=== PATIENT | male | born 1975 | race Caucasian/White ===

== ENCOUNTER 2018-11-24 10:45 | Emergency (ER) | payer OTHER ==
--- NOTE | 2018-11-24 12:40 | ED Physician Documentation ---
PD HPI BACK INJURY - Stated complaint Stated Complaint: BACK PX - History obtained from History obtained from: Patient - History of Present Illness Location: Right, Lower Type of injury: No: Fall, Twist Where injury occurred: Home, Work (he had noted some pain in lower back yesterday. 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 Awoke this morning with marked stiffness and pain on ROM of right lower back. No numbness nor weakness. No bladder problem.) Timing - onset: Yesterday Timing - details: Gradual onset, Still present (worse this morning) Quality: Pain, Spasm Worsened by: Moving, Palpating Associated symptoms: No: Fever, Weakness, Numbness, Incontinent of urine, Hematuria Contributing factors: Work related Similar symptoms before: Has not had sx before Recently seen: Not recently seen Review of Systems Constitutional: denies: Fever, Chills, Myalgias Nose: denies: Rhinorrhea / runny nose, Congestion Throat: denies: Sore throat Respiratory: denies: Cough GI: denies: Abdominal Pain, Nausea, Vomiting, Constipation, Diarrhea : denies: Dysuria, Frequency, Hematuria Skin: denies: Rash, Lesions Musculoskeletal: reports: Back pain (just current episode). 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 - Past Surgical History Past Surgical History: No - Present Medications Home Medications: Ambulatory Orders Medication Instructions Recorded Confirmed Hydrocodone/Acetaminophen [Falcon 1 each PO Q6H PRN #20 tablet 11/24/18 5-325 Tablet] Naproxen 500 mg PO BID #20 tablet 11/24/18 Secukinumab [Cosentyx Pen] 150 mg SQ 11/24/18 Tizanidine HCl 4 mg PO TID PRN #25 capsule 11/24/18 dexAMETHasone [Decadron] 4 mg PO DAILY #5 tablet 11/24/18 - Allergies Allergies/Adverse Reactions: Allergies Allergy/AdvReac Type Severity Reaction Status Date / Time No Known Drug Allergies Allergy Verified 11/24/18 10:53 - Social History Does the pt smoke?: No Smoking Status: Never smoker Does the pt drink ETOH?: Yes Does the pt have substance abuse?: No - Immunizations Immunizations are current?: Yes PD ED PE NORMAL - Vitals Vital signs reviewed: Yes - General General: Alert and oriented X 3, No acute distress, Well developed/nourished - Cardiac Cardiac: RRR, No murmur - Respiratory Respiratory: Clear bilaterally - Abdomen Abdomen: Soft, Non tender - Back Back: No CVA TTP, No spinal TTP, Other (tender right lateral muscles without rash nor sores. focally tender in muscle and top of SI area. no midline tenderness. ) - Derm Derm: Normal color, Warm and dry Results - Vitals Vitals: Vital Signs - 24 hr 11/24/18 11/24/18 10:52 13:59 Temperature 36.2 C L 36.0 C L Heart Rate 91 64 Respiratory 18 18 Rate Blood Pressure 124/90 H 114/76 O2 Saturation 95 95 Oxygen O2 Source Room air PD MEDICAL DECISION MAKING - ED course Complexity details: re-evaluated patient (improved to reasonable ROM with meds here. ), considered differential (not having pain midline, but in SI area and lateral right muscles. Doubt psoriatic extension of his prior med problem. Seems common low back muscular pain. ), d/w patient ED course: triger point in lateral muscle right side with marcaine and kenalog without problems. Departure - Departure Disposition: 01 Home, Self Care Clinical Impression: Acute lumbar myofascial strain Qualifiers: Encounter type: initial encounter Qualified Code(s): S39.012A - Strain of muscle, fascia and tendon of lower back, initial encounter Condition: Stable Record reviewed to determine appropriate education?: Yes Instructions: ED Sprain Strain Lumbar Follow-Up: Chua Messer MD [Primary Care Provider] - Prescriptions: dexAMETHasone [Decadron] 4 mg PO DAILY #5 tablet Hydrocodone/Acetaminophen [Falcon 5-325 Tablet] 1 each PO Q6H PRN #20 tablet PRN Reason: Pain Naproxen 500 mg PO BID #20 tablet Tizanidine HCl 4 mg PO TID PRN #25 capsule PRN Reason: Spasms Comments: Heat and gentle stretching for the low back muscles. Avoid bending lifting and twisting for the next several days. Rest at home today and may be tomorrow. Add some anti-inflammatories such as naproxen twice daily with food and Decadron steroid anti-inflammatory daily for 5 days. To that add tizanidine muscle relaxant for spasms and stiffness and hydrocodone as needed for pain. Recheck if not improving well over the next several days. Physical treatments such as massage and chiropractic are okay as well. Forms: Activity restrictions Discharge Date/Time: 11/24/18 14:06
[2018-11-24] MEDS ORDERED: HYDROmorphone 1 MG/ML CARPUJECT IM STA (13:10)
[2018-11-24] MEDS ORDERED: KETOROLAC 60 MG/2 ML VIAL IM STA (13:10)
[2018-11-24] MEDS ORDERED: TRIAMCINOLONE 40 MG/ML VIAL IM STA (13:11)
[2018-11-24] MEDS ORDERED: diazePAM 5 MG TABLET PO STA (13:11)
[2018-11-24 13:59] VITALS: BP 114/76
== END 2018-11-24 14:06 | disposition home or self-care (01) ==
LOC: ED 10:45
DX: S39.012A Strain of muscle, fascia and tendon of lower back, initial encounter (principal); X58.XXXA Exposure to other specified factors, initial encounter
CPT/HCPCS: 20552; 96372; 99284; A9270; J1170

== ENCOUNTER 2019-01-14 12:55 | Outpatient (CLI) | payer OTHER ==
--- NOTE | 2019-01-14 15:53 | MRI Report ---
Reason: RT ANKLE PAIN Procedure Date: 01/14/2019 Accession Number: [id number] / [id number] Procedure: MRI - Ankle RT W/O CPT Code: Final Report FULL RESULT: EXAM: RIGHT ANKLE/HINDFOOT MRI WITHOUT CONTRAST EXAM DATE: 01/14/2019 01:43 PM. CLINICAL HISTORY: Right ankle pain. COMPARISON: None. TECHNIQUE: Multiplanar, multisequence T1-weighted and fluid-sensitive sequences of the ankle/hindfoot without contrast. Other: None. FINDINGS: Bones and articular surfaces: Moderate ankle joint effusion. 1 cm subchondral cyst formation at the posterior articular facet of the talus at the posterior subtalar joint. There may be a tiny overlying cartilage fissure. No significant associated cartilage defect. Small os trigonum. No significant edema at the synchondrosis. Musculotendinous structures: The Achilles tendon and plantar fascia appear intact. Visualized anterior, posterior and posterolateral ankle tendons appear intact. Moderate fluid associated with the flexor hallucis longus tendon. No muscle edema, atrophy or fatty replacement within the field of view. Ligaments: There is mild thickening and edema associated with the posterior talofibular ligament. The anterior talofibular, calcaneofibular and deltoid ligaments appear intact. Normal signal within the tarsal sinus. IMPRESSION: 1. Moderate ankle joint effusion. 2. Focal subchondral cyst within the talus at the posterior subtalar joint. Possible associated cartilage fissure but no significant cartilage defect. 3. Mild flexor hallucis longus tenosynovitis. 4. Possible mild sprain or scarring at the posterior talofibular ligament. RADIA
== END 2019-01-14 12:56 | disposition home or self-care (01) ==
LOC: DI 12:55
PROVIDERS: ATTEND Orthopaedic Surgery
DX: M25.571 Pain in right ankle and joints of right foot (principal); M25.471 Effusion, right ankle; M65.871 Other synovitis and tenosynovitis, right ankle and foot; M85.671 Other cyst of bone, right ankle and foot

== ENCOUNTER 2019-04-02 09:52 | Day surgery (SDC) | payer OTHER ==
[2019-04-02] MEDS ORDERED: ROCURONIUM 50 MG/5 ML VIAL IVP ONE (09:53)
[2019-04-02] MEDS ORDERED: DEXAMETHASONE 4 MG/ML VIAL IVP ONE (09:53)
[2019-04-02] MEDS ORDERED: PROPOFOL 200 MG/20 ML VIAL IVP ONE (09:53)
[2019-04-02] MEDS ORDERED: KETOROLAC 30 MG/ML VIAL IVP ONE (09:53)
[2019-04-02] MEDS ORDERED: GLYCOPYRROLATE 1 MG/5 ML VIAL IVP ONE (09:53)
[2019-04-02] MEDS ORDERED: MIDAZOLAM 2 MG/2 ML VIAL IVP ONE (09:53)
[2019-04-02] MEDS ORDERED: NEOSTIGMINE 1 MG/1 ML 10 ML MDV IVP ONE (09:53)
[2019-04-02] MEDS ORDERED: LACTATED RINGERS 1,000 ML IV ONE ×3 (09:57→13:47)
--- NOTE | 2019-04-02 10:45 | ANESTHESIA ---
Pre-Anesthesia VS, & Labs - Diagnosis Right symptomatic trigonum, FHL tendinitis - Procedure Open OS trigonum excision, FHL tendon exploration Vital Signs: Temp Pulse Resp BP Pulse Ox 36.2 C L 85 12 130/97 H 96 04/02/19 09:57 04/02/19 09:57 04/02/19 09:57 04/02/19 09:57 04/02/19 09:57 Height 6 ft 4 in Weight (kg) 127.01 kg Body Mass Index 33.5 - NPO >8 hours - Lab Results Lab results reviewed: No Home Medications and Allergies Secukinumab [Cosentyx Pen] 150 mg SQ 11/24/18 Allergies/Adverse Reactions: Allergies Allergy/AdvReac Type Severity Reaction Status Date / Time No Known Drug Allergies Allergy Verified 03/26/19 08:13 Anes History & Medical History - Anesthetic History Anesthesia Complications: reports: No previous complications Family history of Anesthesia Complications: Denies Family history of Malignant Hyperthermia: Denies - Medical History Cardiovascular: reports: None Pulmonary: reports: None, Other (Snores) Gastrointestinal: reports: None Urinary: reports: None Neuro: reports: None Musculoskeletal: reports: Osteoarthritis, Other Endocrine/Autoimmune: reports: None Blood Disorders: reports: None Skin: reports: None Smoking Status: Never smoker Psychosocial: reports: No issues indicated Exam General: Alert, Oriented x3 Dental: WNL Mouth Opening: Greater than 4 Fingerbreadths Neck Mobility: Normal Mallampati classification: II Thyromental Distance: greater than 6 cm Respiratory: Lungs clear Cardiovascular: Regular rate Neurological: Normal speech Mental/Cognitive Status: Alert/Oriented X3 Cognitive Status: Within normal limits Plan Anesthesia Type: General Consent for Procedure(s) Verified and Reviewed: Yes Code Status: Attempt Resuscitation ASA classification: 2-Mild systemic disease Is this case an emergency?: No
[2019-04-02] MEDS ORDERED: ROPIVACAINE 0.5% PF 20 ML AMPULE ONE ×2 (12:22→12:31)
[2019-04-02] MEDS ORDERED: BUPIVACAINE 0.25% PF 30 ML VIAL ONE (12:49)
[2019-04-02] MEDS ORDERED: ceFAZolin 3 GM in SODIUM CHLORIDE 0.9% 100ML 100 ML IV ONE (13:00)
[2019-04-02] MEDS ORDERED: BUPIVACAINE 0.25% PF 30 ML VIAL SUBQ ONE (13:57)
[2019-04-02] MEDS ORDERED: ACETAMINOPHEN 1,000 MG/100 ML 100 ML IV ONE (14:02)
[2019-04-02] MEDS ORDERED: ONDANSETRON 4 MG/2 ML VIAL IVP PRN (15:45)
[2019-04-02] MEDS ORDERED: oxyCODONE 5 MG TABLET PO PRN (15:45)
--- NOTE | 2019-04-02 15:45 | OPERATIVE REPORT ---
Operative Report - General Procedure Date: 04/02/19 - Other Other Information/Narrative: Date of Procedure: 02 April 2019 Planned Procedure: Right ankle os trigonum excision, FHL tendon exploration Pre-op diagnosis: Right ankle symptomatic os trigonum, FHL tendinitis Procedure performed: Right ankle os trigonum excision, FHL tendon explore Post-op diagnosis: Right ankle symptomatic os trigonum Primary Surgeon: SCHUYLER ALVES Secondary Surgeon: RODNEY DUGGAN Anesthesia: General endotracheal, preoperative adductor canal and popliteal nerve block EBL: 5 ml Tourniquet: 85 minutes, right thigh. Indications: The patient is a 43-year-old male who sustained an injury to his right ankle in 2016. He was treated nonoperatively in a cam boot with physical therapy and injections which provided minimal durable relief. His past medical history significant for psoriatic arthritis treated with Cosentyx. 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 Therefore he requested a referral and orthopedic evaluation. He presented to the orthopedic clinic, with continued pain 3-4 out of 10 on a daily basis. On exam he localized the pain to the posterior lateral portion of the ankle anterior to the Achilles tendon, consistent with a symptomatic os trigonum. He had pain with forced plantarflexion of the ankle and he also had pain at that location with stretch of the FHL tendon suggesting impingement of the tendon across the os. MRI demonstrated a large os trigonum, with fluid in the FHL tendon sheath, without discrete tear. Treatment options were discussed including continued nonoperative treatment, injections, or surgery to remove the os trigonum. Risks of surgery were discussed to include pain, bleeding, infection, damage to nearby structures including nerves, blood vessels and tendons, lack of symptom relief, need for further surgery, DVT, PE, stroke, and . After discussion in clinic regarding the risk benefits and limitations of surgery, as well as the persistence of pain following surgery, the patient elected to proceed. As his pain was primarily posterior lateral with FHL tendon movement, a limited exploration of the tendon at that location was discussed. The planned procedure was right ankle os trigonum excision, and limited FHL tendon exploration. Informed consent was signed. We discussed timing of his Cosentyx, which he typically takes once a month at the beginning of the month, and agreed to hold his February dose until the seventh, after the incision was examined. Review of the literature suggests that Cosentyx did not need to be discontinued prior to a surgery of this type. Procedure in Detail: The patient was met in the pre-operative hold area on the day of the procedure. The operative extremity was signed and questions were answered. The patient met with anesthesia and received an adductor canal and popliteal block and was brought to the operating room and a general anesthetic was administered. The patient was then positioned prone on bolsters, ensuring free excursion of the abdomen, with all bony prominences padded. A nonsterile tourniquet was placed high on the right thigh. Standard prepping and draping was performed. A time out confirmed patient identification, laterality, procedure, allergies, and antibiotics. The course of the Achilles tendon was marked out on the posterior leg and 7 cm was measured proximal from the tip of the fibula to illustrate the point at which the sural nerve likely crossed over the lateral border of the tendon. An initial 8 cm longitudinal incision was marked out on the skin midway between the lateral border of the Achilles tendon and the posterior border of the fibula. The extremity was exsanguinated using an Esmarch bandage and the tourniquet was inflated. The skin was sharply incised using a 10 blade, followed by gentle spreading through the subcutaneous fat using tenotomy scissors for blunt dissection. The small saphenous vein and sural nerve were encountered, mobilized and protected. The nerve and vein were retracted anteriorly and then the deep tissue was divided with a combination of sharp and blunt dissection through the peroneal retinaculum, exposing the FHL muscle belly. There was a significant amount of adipose tissue adherent to the FHL muscle laterally this was sharply resected to improve exposure. The posterior edge of the tibia was palpated, and below it, the os trigonum, protruding just above the subtalar joint. A longitudinal arthrotomy was performed, exposing the os trigonum. This was circumferentially dissected free of tissue using a combination of sharp and blunt dissection and Bovie electrocautery. Once the os trigonum was exposed an osteotome was used to transect it at its base near where the synchondrosis appeared to be. The osteotome easily passed, suggesting in fact that we were in the synchondrosis. The majority of the os trigonum came out in 1 large piece, approximately 1.5 cm in diameter. Digital palpation revealed a small piece remaining medially and so a thin osteotome was used to remove this. Digital palpation was then used to confirm removal of the os, and the ankle was taken through range of motion confirming good plantar flexion without impingement. Mini C-arm fluoroscopy confirmed removal of the os. Next we turned our at tention to the FHL, the muscle belly was followed distally with release of the sheath until the tendon was encountered, overall the tendon appeared intact without significant synovitis or tear. The wound was then copiously irrigated. The capsule was closed using interrupted 0 Vicryl in [id number] fashion. The wound was again irrigated and then the subcutaneous tissues were closed using 2-0 Vicryl interrupted, followed by running 3-0 Monocryl in subcuticular fashion for the skin. Mastisol and Steri-Strips were placed followed by Xeroform. 4 x 4 gauze was applied, and then a well-padded L and U plaster splint was applied and secured in place with a gently compressive Colt wrap. The tourniquet was let down, the surgical drapes were taken down, and the patient was rolled supine onto the [facility]. Anesthesia was reversed the patient was transferred to the PACU in stable condition. Postoperatively he will be nonweightbearing. The splint will stay on until follow-up Nonweightbearing until follow-up Aspirin for DVT prophylax Follow-up in 2 weeks for planned splint take down and suture removal.
[2019-04-02] MEDS ORDERED: LABETALOL 20 MG/4 ML SYRINGE IVP ONE (15:47)
[2019-04-02 16:33] VITALS: BP 142/84
== END 2019-04-02 09:53 | disposition home or self-care (01) ==
LOC: SDS 09:52
PROVIDERS: ATTEND Orthopaedic Surgery
PROC: 0QBL0ZZ Excision of Right Tarsal, Open Approach (ICD-10-PCS; principal; 2019-04-02 11:30)
DX: M25.871 Other specified joint disorders, right ankle and foot (principal); M77.51 Other enthesopathy of right foot and ankle; L40.50 Arthropathic psoriasis, unspecified; F17.220 Nicotine dependence, chewing tobacco, uncomplicated

== ENCOUNTER 2019-07-08 07:15 | Outpatient (CLI) | payer OTHER ==
--- NOTE | 2019-07-08 15:50 | MRI Report ---
Reason: RIGHT ANKLE PAIN Procedure Date: 07/08/2019 Accession Number: [id number] / [id number] Procedure: MRI - Ankle RT W/O CPT Code: Final Report FULL RESULT: EXAM: RIGHT ANKLE/HINDFOOT MRI WITHOUT CONTRAST EXAM DATE: 07/08/2019 08:24 AM. CLINICAL HISTORY: Right ankle pain. COMPARISON: ANKLE RT W/O 01/14/2019 1:10 PM. TECHNIQUE: Multiplanar, multisequence T1-weighted and fluid-sensitive sequences of the ankle/hindfoot without contrast. Other: None. FINDINGS: Bones and articular surfaces: 1 cm subchondral cyst at the posterior articular facet of the calcaneus. Small amount of adjacent degenerative subchondral marrow edema and small amount of overlying cartilage thinning. The marrow edema is new or increased compared to prior. Small ankle joint effusion similar to prior. The os trigonum has been removed. Accessory navicular is again noted. No acute fracture. Musculotendinous structures: Moderate fluid associated with the flexor hallucis longus tendon, unchanged from prior. Small amount of fluid associated with the peroneus longus and brevis above and below the lateral malleolus. Otherwise the visualized anterior, posterior and posterolateral ankle tendons appear intact. Achilles tendon and plantar fascia appear intact. Ligaments: The anterior and posterior talofibular, calcaneofibular and deltoid ligaments appear intact. A small amount of increased intrasubstance signal at the posterior talofibular ligament, unchanged. Anterior and posterior distal tibiofibular ligaments intact. IMPRESSION: 1. Removal of os trigonum. 2. Increased degenerative subchondral marrow edema at the posterior articular facet of the calcaneus with mild associated new cartilage thinning. Subchondral cyst unchanged. 3. Mild flexor hallucis longus tenosynovitis, unchanged. 4. Minimal peroneus longus and brevis tenosynovitis. RADIA
== END 2019-07-08 07:16 | disposition home or self-care (01) ==
LOC: DI 07:15
PROVIDERS: ATTEND Orthopaedic Surgery
DX: M65.9 Synovitis and tenosynovitis, unspecified (principal); R60.0 Localized edema; M24.171 Other articular cartilage disorders, right ankle; M85.671 Other cyst of bone, right ankle and foot